=== PATIENT | female | born 1990 | race Caucasian/White ===

== ENCOUNTER 2017-05-24 16:24 | Emergency (ER) | payer OTHER ==
[~2017-05-24] VITALS: Ht 167.6 cm; Wt 77.1 kg
[2017-05-24 16:30] VITALS: BP 135/74
[2017-05-24] MEDS ORDERED: DEXT10TA23 (16:35)
--- NOTE | 2017-05-24 16:38 | PHYS DOC ---
Adult General Chief Complaint Chief Complaint: OTHER COMPLAINTS HPI HPI Patient is a 26 year old female presents to the emergency department with a history of infected right index finger. Patient states she was seen at urgent care this morning had the area lanced open. She was placed on Augmentin with recommendations to take Ibuprofen 800 mg three times a day. Patient states she went back to work and as the day progressed the finger had increase pain and discomfort. The area around the nail bed became swollen and darker. She has taken 800 mg of Ibuprofen twice today with no relief. She states her tetanus immunization is up to date. Review of Systems Review of Systems Constitutional: Denies fever or chills [] Eyes: Denies change in visual acuity, redness, or eye pain [] HENT: Denies nasal congestion or sore throat [] Respiratory: Denies cough or shortness of breath [] Cardiovascular: No additional information not addressed in HPI [] GI: Denies abdominal pain, nausea, vomiting, bloody stools or diarrhea [] : Denies dysuria or hematuria [] Musculoskeletal: Denies back pain or joint pain [] Integument: Denies rash or skin lesions. Infected right index finger Neurologic: Denies headache, focal weakness or sensory changes [] Endocrine: Denies polyuria or polydipsia [] Current Medications Current Medications Current Medications Medications (Trade) Dose Ordered Sig/Constance Start Time Stop Time Status Last Admin Dose Admin Acetaminophen/ Hydrocodone Bitart (Lortab 5/325) 2 tab 1X ONCE 05/24/17 16:45 05/24/17 16:46 DC 05/24/17 16:47 2 TAB Lidocaine/Sodium Bicarbonate (Buffered Lidocaine 1%) 20 ml 1X ONCE 05/24/17 16:45 05/24/17 16:46 DC 05/24/17 16:45 20 ML Allergies Allergies Allergies Coded Allergies Type Severity Reaction Last Updated Verified No Known Drug Allergies 05/24/17 No Physical Exam Physical Exam Constitutional: Well developed, well nourished, no acute distress, non-toxic appearance. [] HENT: Normocephalic, atraumatic, bilateral external ears normal, oropharynx moist, no oral exudates, nose normal. [] Eyes: PERRLA, EOMI, conjunctiva normal, no discharge. [] Neck: Normal range of motion, no tenderness, supple, no stridor. [] Cardiovascular:Heart rate regular rhythm Lungs & Thorax: no respiratory distress Skin: Warm, dry, no erythema, no rash. Right index finger with redness, white area and darken area noted around the right nail bed. Back: No tenderness Extremities: No tenderness, no cyanosis, no clubbing, ROM intact, no edema. [] Neurologic: Alert and oriented X 3, normal motor function, normal sensory function, no focal deficits noted. [] Psychologic: Affect normal, judgement normal, mood normal. [] Current Patient Data Vital Signs Vital Signs Date Time Temp Pulse Resp B/P (MAP) Pulse Ox O2 Delivery O2 Flow Rate FiO2 05/24/17 16:30 98.4 71 18 99 Room Air 98.4 EKG EKG [] Radiology/Procedures Radiology/Procedures [] Course & Med Decision Making Course & Med Decision Making Pertinent Labs and Imaging studies reviewed. (See chart for details) Patient instructed to continue with antibiotic as prescribed by urgent care. Continue with Ibuprofen 800 mg as instructed by urgent care. Patient was instructed to use warm episom salt soaks 5 times a day for 20 minutes at a time. Patient will be provided with [place] for severe pain. Patient was instructed that this medication will cause drowsiness do not take if you need to be alert and oriented. Patient agrees with discharge instructions, treatment regimen and followup recommendations. Signs and symptoms to return to the emergency department has been provided. [] Dragon Disclaimer Dragon Disclaimer This electronic medical record was generated, in whole or in part, using a voice recognition dictation system. Departure Departure Impression: Primary Impression: Paronychia Disposition: 01 HOME, SELF-CARE Condition: STABLE Patient Instructions: Paronychia, [id number] Additional Instructions: Continue with the antibiotics as prescribed Ibuprofen 800 mg every 8 hours with food stop taking if you develop upset stomach Warm episom salt soaks 5 times a day for 20 minutes at a time. [place] for severe pain, this medication will cause drowsiness do not take if you need to be alert and oriented Followup with your primary care provided in 3-5 days Return to emergency department as needed for signs and symptoms that become worse. Scripts Hydrocodone/Apap 5-325 (NORCO 5-325 TABLET) 1 Each Tablet 1 TAB PO PRN Q6HRS Y for PAIN, #10 TAB 0 Refills Prov: NITIN SALTER JIVE DEVELOPER 05/24/17 Incision and Drainage Incision and Drainage : Site: right index finger Blade Size: 11 Progress 1% lidocaine buffered 2 ml injected into the finger for a digital block. Site was cleaned with betadine, #11 blade was use to incise the area with thick yellow drainage noted from the site. Band aid placed over the area. NITIN SALTER APRN May 24, 2017 16:38
[2017-05-24] MEDS ORDERED: LIDOCAINE 1% / SOD BICARB 8.4% 20 ML VIAL. IJ ONE (16:45)
[2017-05-24] MEDS ORDERED: HYDROcodone/APAP 5/325MG 1 TAB TABLET PO ONE (16:45)
[2017-05-24] MEDS ORDERED: HYDR-971 PO (17:04)
== END 2017-05-24 17:12 | disposition home or self-care (01) ==
LOC: ER 16:24
DX: L03.011 Cellulitis of right finger (principal)
CPT/HCPCS: 10060; 99283-25